=== PATIENT | female | born 1965 | race Caucasian/White ===

== ENCOUNTER → 2020-11-27 | Outpatient (CLI) | payer BC ==
--- NOTE | 2020-11-29 11:37 | MM ---
Reason for exam: screening (asymptomatic). Last mammogram was performed 10 years and 4 months ago. History: Patient is postmenopausal. Physical Findings: A clinical breast exam by your physician is recommended on an annual basis and results should be correlated with mammographic findings. MG Screening Mammo w CAD Bilateral CC and MLO view(s) were taken. No prior studies available for comparison. The breast tissue is heterogeneously dense. This may lower the sensitivity of mammography. Course dystrophic benign appearing calcifications lateral left CC view. Grouped calcifications posterior central 6 o'clock left breast. ASSESSMENT: Incomplete: need additional imaging evaluation, BI-RAD 0 RECOMMENDATION: Special view mammogram of the left breast. (magnification) If lesion persists on supplemental views, image directed ultrasound is recommended. [facility] will attempt to contact patient to return for supplemental views and ultrasound if indicated.
== END | disposition home or self-care (01) ==
LOC: RADMAMWWP 15:52
PROVIDERS: ATTEND Family Medicine
DX: Z12.31 Encounter for screening mammogram for malignant neoplasm of breast (principal); Z78.0 Asymptomatic menopausal state
CPT/HCPCS: 77067

== ENCOUNTER → 2020-12-05 | Outpatient (CLI) | payer BC ==
--- NOTE | 2020-12-09 09:33 | MM ---
Reason for exam: additional evaluation requested from abnormal screening. Last mammogram was performed less than 1 month ago. History: Patient is postmenopausal. Took hormonal contraceptives for 6 years beginning at age 17. Physical Findings: Nurse did not find any significant physical abnormalities on exam. MG Work Up Mamm w CAD LT CC with magnification, LM with magnification, and LM view(s) were taken of the left breast. Prior study comparison: November 27, 2020, bilateral MG screening mammo w CAD. August 12, 2010, bilateral digital screening mammogram. The breast tissue is heterogeneously dense. This may lower the sensitivity of mammography. Finding: There are round, regional calcifications in the 5 o'clock lower outer quadrant of the left breast. No tight groups. Short term follow up recommended. New finding since November 27, 2020 and August 12, 2010. These results were verbally communicated with the patient and result sheet given to the patient on 12/05/20. ASSESSMENT: Probably benign, BI-RAD 3 RECOMMENDATION: Follow-up diagnostic mammogram of the left breast in 6 months.
== END | disposition home or self-care (01) ==
LOC: RADMAMWWP 14:58
PROVIDERS: ATTEND Family Medicine
DX: R92.1 Mammographic calcification found on diagnostic imaging of breast (principal); Z78.0 Asymptomatic menopausal state
CPT/HCPCS: 77065

== ENCOUNTER → 2021-07-18 | Outpatient (CLI) | payer BC ==
--- NOTE | 2021-07-21 09:46 | MM ---
Reason for exam: follow-up at short interval from prior study. Last mammogram was performed 7 months ago. History: Patient is postmenopausal. Took hormonal contraceptives for 6 years beginning at age 17. Physical Findings: Nurse did not find any significant physical abnormalities on exam. MG Diagnostic Mammo LT w CAD CC, MLO, XCCL, and LM view(s) were taken of the left breast. Prior study comparison: December 05, 2020, left breast MG work up mamm w CAD LT. November 27, 2020, bilateral MG screening mammo w CAD. The breast tissue is heterogeneously dense. This may lower the sensitivity of mammography. There are benign appearing round dystrophic calcifications in the left breast. There is no discrete abnormality. These results were verbally communicated with the patient and result sheet given to the patient on 07/18/21. ASSESSMENT: Benign, BI-RAD 2 RECOMMENDATION: Return to routine screening mammogram schedule for both breasts. Back on schedule.
== END | disposition home or self-care (01) ==
LOC: RADMAMWWP 14:09
PROVIDERS: ATTEND Family Medicine
DX: R92.8 Other abnormal and inconclusive findings on diagnostic imaging of breast (principal)
CPT/HCPCS: 77065

== ENCOUNTER → 2021-12-18 | Outpatient (CLI) | payer BC ==
--- NOTE | 2021-12-19 12:28 | MM ---
Reason for exam: screening (asymptomatic). Last mammogram was performed 5 months ago. History: Patient is postmenopausal. Took hormonal contraceptives for 6 years beginning at age 17. Physical Findings: A clinical breast exam by your physician is recommended on an annual basis and results should be correlated with mammographic findings. MG Screening Mammo w CAD Bilateral CC and MLO view(s) were taken. Prior study comparison: July 18, 2021, left breast MG diagnostic mammo LT w CAD. December 05, 2020, left breast MG work up mamm w CAD LT. November 27, 2020, bilateral MG screening mammo w CAD. August 12, 2010, bilateral digital screening mammogram. There are scattered fibroglandular densities. Finding: There are new suspicious regional calcifications in the upper outer quadrant of the left breast, extends to nipple spanning 4.5cm, possible underlying mass. New finding since July 18, 2021. ASSESSMENT: Incomplete: need additional imaging evaluation, BI-RAD 0 RECOMMENDATION: Special view mammogram and ultrasound of the left breast. [facility] will attempt to contact patient to return for supplemental views and ultrasound.
== END | disposition home or self-care (01) ==
LOC: RADMAMWWP 16:37
PROVIDERS: ATTEND Family Medicine
DX: Z12.31 Encounter for screening mammogram for malignant neoplasm of breast (principal); Z78.0 Asymptomatic menopausal state
CPT/HCPCS: 77067

== ENCOUNTER → 2021-12-24 | Outpatient (CLI) | payer BC ==
--- NOTE | 2021-12-24 14:12 | MM ---
Reason for exam: additional evaluation requested from abnormal screening. Last mammogram was performed less than 1 month ago. History: Patient is postmenopausal. Took hormonal contraceptives for 6 years beginning at age 17. Physical Findings: A clinical breast exam by your physician is recommended on an annual basis and results should be correlated with mammographic findings. MG Work Up Mamm w CAD LT CC, MLO, and LM view(s) were taken of the left breast. Prior study comparison: December 18, 2021, bilateral MG screening mammo w CAD. July 18, 2021, left breast MG diagnostic mammo LT w CAD. The breast tissue is heterogeneously dense. This may lower the sensitivity of mammography. Finding: There are intermediate concern, suspicious pleomorphic, regional, grouped calcifications in the upper outer quadrant, anterior to middle position of the left breast. Focal asymmetry in the left upper outer quadrant. New finding since December 18, 2021 and July 18, 2021. Results were given to the patient verbally at the time of the exam. ASSESSMENT: Incomplete: need additional imaging evaluation, BI-RAD 0 RECOMMENDATION: Ultrasound of the left breast.
--- NOTE | 2021-12-24 14:15 | USB ---
Reason for exam: additional evaluation requested from abnormal screening. History: Patient is postmenopausal. Took hormonal contraceptives for 6 years beginning at age 17. Physical Findings: A clinical breast exam by your physician is recommended on an annual basis and results should be correlated with mammographic findings. US Breast Workup LT Left complete breast ultrasound includes all four quadrants, the retroareolar region and axilla. Finding demonstrates a 2.8 x 1.1 x 2.3cm irregular, lobular lesion at 1 o'clock, a 0.4 x 0.5 x 0.4cm irregular, lobular lesion at 2 o'clock and a 2.5 x 1.0 x 1.5cm irregular, lobular lesion at 4 o'clock. Left axillary lymph node suspicious, thickened cortex. Results were given to the patient verbally at the time of the exam. ASSESSMENT: Highly suggestive of malignancy, BI-RAD 5 RECOMMENDATION: Ultrasound core biopsy of the left breast. Called Dr. Leblanc's office with mammographic findings and has scheduled an appointment for the patient for 12/26/21 at 9:[address] Cordero. Biopsy scheduled for 12/30/21 at 12:30. PRELIMINARY REPORT CALLED AND FAXED TO DR. CORDERO ON 12/24/21.
== END | disposition home or self-care (01) ==
LOC: RADMAMWWP 10:14
PROVIDERS: ATTEND Family Medicine
DX: R92.1 Mammographic calcification found on diagnostic imaging of breast (principal); N64.89 Other specified disorders of breast; Z78.0 Asymptomatic menopausal state
CPT/HCPCS: 77065

== ENCOUNTER → 2021-12-25 | Outpatient (CLI) | payer BC ==
[2021-12-25 09:55] VITALS: PULSE 90; RESP 13; TEMP 97.9
--- NOTE | 2021-12-25 10:54 | P.GSHP ---
History of Present Illness H&P Date: 12/25/21 Chief Complaint: Abnormal left breast mammogram Lenora is a 56-year-old white female seen in consultation for Dr. Nova regarding an abnormal left breast mammogram. She underwent a bilateral mammogram on [id number]. An area 4.5 cm microcalcifications of concern were seen in the left breast. She then underwent a diagnostic left breast mammogram which again showed a focal asymmetry in the left breast as well as an ultrasound of the left breast which revealed a 2.8 x 2.3 cm irregular lobulated lesion at 1:00, 0.4 x 0.5 cm irregular lesion at 2:00, and a 2.5 x 1.5 cm irregular lesion at 4:00. Left axillary lymph node also appeared to have a thickened cortex. Th e patient has noted an area of nodularity in the left breast approximately 3 months ago, the area behind the nipple does seem to have changed to the patient. She has some mild intermittent shooting pain. She has not had any recent trauma or infection of the breast. She has not had any surgery of the breast. She has had some weight loss over the past several years and has changed the type of brought she wears and the underwire on the broad does seem to be the irritated and area where the nodularity is present. The patients last mammogram was 1 year ago done here November 2020, than a follow up in June 2021 and told all OK, and now patient felt something and had repeat recent mammograms. Caffiene: 2 cups 32 oz coffee daily nicotine: in 20's not since than chocolate: occasional hormones: post menopausal since age of 42; did not use any BCP: 2 years in 20's Family history: Negative Hormonal history: Menarche: 11 breast fed: yes, age at first : 28 menopause: 42 hormones: none Surgical History: 2 C-sections Medical History: none Social History: Nicotine: Negative Alcohol: Negative Drugs: - Constitutional Constitutional: Denies chills, Denies fever - EENT Eyes: denies blurred vision, denies pain Ears: deny: decreased hearing, tinnitus Ears, nose, mouth and throat: Denies headache, Denies sore throat - Breasts Breasts: bilateral: as per HPI - Cardiovascular Cardiovascular: Denies chest pain, Denies shortness of breath - Respiratory Respiratory: Denies cough, Denies 7 - Gastrointestinal Gastrointestinal: Denies abdominal pain, Denies diarrhea, Denies nausea, Denies vomiting - Genitourinary (Female) Genitourinary: Denies dysuria, Denies hematuria - Menstruation Menstruation: Reports postmenopausal - Musculoskeletal Musculoskeletal: Denies myalgias - Integumentary Integumentary: Denies pruritus, Denies rash - Neurological Neurological: Denies numbness, Denies weakness - Psychiatric Psychiatric: Denies anxiety, Denies depression - Endocrine Endocrine: Denies fatigue, Denies weight change - Hematologic/Lymphatic Comment: none - Allergic/Immunologic Allergic/Immunologic: Reports seasonal allergies Past Medical History Past Medical History: No Reported History History of Any Multi-Drug Resistant Organisms: None Reported Past Surgical History: Section Additional Past Surgical History / Comment(s): section x 2 Past Anesthesia/Blood Transfusion Reactions: No Reported Reaction Past Psychological History: No Psychological Hx Reported Smoking Status: Never smoker Past Alcohol Use History: None Reported Past Drug Use History: None Reported Medications and Allergies Home Medications Medication Instructions Recorded Confirmed Type No Known Home Medications 12/25/21 12/25/21 History Allergies Allergy/AdvReac Type Severity Reaction Status Date / Time Iodinated Contrast Media AdvReac Unknown Verified 12/25/21 09:49 Childhood Surgical - Exam Vital Signs Temp Pulse Resp Pulse Ox 97.9 F 90 13 98 12/25/21 09:50 12/25/21 09:50 12/25/21 09:50 12/25/21 09:50 BMI: 18.6 - General well developed, well nourished, no distress - Eyes normal ocular movement - ENT no congestion - Neck trachea midline - Respiratory normal respiratory effort, clear to auscultation - Cardiovascular Rhythm: regular Heart Sounds: normal: S1, S2 - Abdomen Abdomen: soft, non tender, no guarding, no rigid, no rebound - Integumentary normal turgor - Neurologic no disoriented, no combative - Musculoskeletal normal gait - Psychiatric oriented to time, oriented to person, oriented to place, speech is normal, memory intact Breast Exam: BRA: 32A Inspection: Bilateral grade 2 ptosis Palpation: Right breast: Multiple positional exam fibrocystic changes no dominant masses or nodules of concern Right axilla: No adenopathy of concern Left breast: Some deviation of the nipple toward some skin changes laterally, fullness in the upper outer quadrant approximately 4 cm in size extending down towards the 3 to 4 o'clock position of the left breast Left axilla: Approximately 1.5 cm lymph node palpable Results Mammogram and ultrasound results reviewed Assessment and Plan Assessment: Impression: Abnormal left breast mammogram and ultrasound Palpable mass left breast Plan: Left breast core biopsy Left axillary node biopsy folllow up after biopsy CC: Dr. Nova
== END ==
LOC: WWCWWP 09:36
PROVIDERS: ATTEND Surgery
DX: R92.8 Other abnormal and inconclusive findings on diagnostic imaging of breast (principal); N63.20 Unspecified lump in the left breast, unspecified quadrant; Z91.041 Radiographic dye allergy status

== ENCOUNTER → 2021-12-30 | Day surgery (SDC) | payer BC ==
--- NOTE | 2021-12-30 21:41 | USB ---
EXAMINATION TYPE: US biopsy breast VAD LT, US biopsy breast add'l VAD LT, US biopsy breast add'l VAD LT, US biopsy breast add'l VAD LT, MG postbiopsy diagnostic mammo LT wo CAD DATE OF EXAM: 12/30/2021 CLINICAL HISTORY: 56-year-old female R92.8 abnormal mammogram. TECHNIQUE: Ultrasound guided core biopsy of the left breast, 4 sites. COMPARISON: 12/24/2021, 12/18/2021, 11/27/2020, 07/18/2021 FINDINGS: The procedure of ultrasound guided core biopsy was explained to the patient. Benefits, alt ernatives, and risks were discussed. An informed consent was then obtained. The patient was placed in supine positioning for imaging and for the procedure. The overlying skin w as prepped and draped in usual sterile fashion. Lidocaine was used as anesthetic into the skin at ea ch of the 4 sites with a total of 3 mL utilized. Subsequently, at each site international logistics manager, lidocaine with ep inephrine was injected into the subcutaneous tissues and around each target lesion with a total 20 mL utilized. 1. 4:00 large mass with calcifications: Under ultrasound guidance, a 13-gauge vacuum-assisted mammoto me biopsy gun device was used to obtain 3 core samples. Following this, a wing clip was left in lesi on. Not seen on postbiopsy mammogram, likely too far posterior to be included in the [id number]. 2. 2:00 small 5 mm mass: Under ultrasound guidance, a 13-gauge vacuum-assisted mammotome biopsy gun d evice was used to obtain 5 core samples. Following this, a spiral hydro-Cirilo was left in lesion. Th is is seen on postbiopsy mammogram. 3. 1:00 large mass: Under ultrasound guidance, a 13-gauge vacuum-assisted mammotome biopsy gun device was used to obtain 5 core samples. Following this, a wing clip was left in lesion. This is seen on postbiopsy mammogram. 4. Most inferior enlarged axillary node: Additional similar enlarged axillary nodes are present more superiorly. Under ultrasound guidance, a 13-gauge vacuum-assisted mammotome biopsy gun device was use d to obtain 4 core samples. Following this, a Downey cirilo clip was left in lesion. This is outside t he field of view on the postbiopsy mammogram atelectasis. The patient tolerated the procedure well without any immediate complication. The patient was kept in the radiology department for short stay after the procedure and then discharged home in stable condi tion. Note that the 4:00 wing clip at the site of large mass and axillary Hydromark clip appear to be outsi de the field of view and are not seen on the postbiopsy mammogram. Only the wing clip at the large 1:00 mass and Hydromark clip at the small 2:00 mass are visualized. IMPRESSION: Successful, uncomplicated four site ultrasound guided core biopsy of multicentric BI-RADS [address] disease including an axillary lymph node. Full pathology results to follow. Note that the 4:00 wing clip at the site of large mass and axillary Hydromark clip appear to be outsi de the field of view and are not seen on the postbiopsy mammogram. Only the wing clip at the large 1:00 mass and Hydromark clip at the small 2:00 mass are visualized.
== END ==
LOC: RADUSWWP 12:16
PROVIDERS: ATTEND Surgery
DX: C50.511 Malignant neoplasm of lower-outer quadrant of right female breast (principal); C50.412 Malignant neoplasm of upper-outer quadrant of left female breast; R92.8 Other abnormal and inconclusive findings on diagnostic imaging of breast
CPT/HCPCS: 77065; 19083; 19084; A4648; 88305; 88341; 88342

== ENCOUNTER → 2022-01-07 | Outpatient (CLI) | payer BC ==
--- NOTE | 2022-01-07 13:21 | CT ---
EXAMINATION TYPE: CT abdomen pelvis wo con DATE OF EXAM: 01/07/2022 HISTORY: RIGHT UPPER QUADRANT PAIN CT DLP: 429 mGycm. Automated Exposure Control for Dose Reduction was Utilized. TECHNIQUE: CT scan of the abdomen and pelvis is performed without oral or IV contrast. COMPARISON: NONE FINDINGS: Within the limitations of a non-contrast study, the following observations are made. LUNG BASES: No significant abnormality is appreciated. LIVER/GB: Hepatomegaly with innumerable heterogeneous hypodense masses. Finding is consistent with di ffuse metastatic disease. Gallbladder has some surrounding fluid and fat stranding axial image 41 and coronal image 17. No biliary dilatation. PANCREAS: No significant abnormality is seen. SPLEEN: No significant abnormality is seen. ADRENALS: No significant abnormality is seen. KIDNEYS: No renal calculi seen bilaterally. There is 3.7 cm simple appearing thin-walled cyst in the right kidney midpole level coronal image 48. Some central and a core prominence upper pole right kidn ey could reflect dilated calyx versus simple central cysts. Latter favored. Bladder shows mild/modera te concentric wall thickening. BOWEL: Suboptimal evaluation as patient has little intra-abdominal fat and lack of enteric contrast. No suspicious small or large bowel dilatation. GENITAL ORGANS: Normal size uterus with moderate amount of fluid in the pelvic cul-de-sac having slig htly higher density than simple fluid. Hounsfield units average near 12. Hemorrhagic ascites needs to be considered. LYMPH NODES: Suboptimal evaluation due to lack of contrast and little intra-abdominal fat. Prominent border line enlarged 1.6 x 1.0 cm right groin lymph node coronal image 17. OSSEOUS STRUCTURES: No significant abnormality is seen. OTHER: No significant additional abnormality is seen. IMPRESSION: 1. Hepatomegaly with innumerable hypodense masses consistent with metastatic disease in patient with newly diagnosed multicentric left breast neoplasm and known left axillary adenopathy involvement. Ill -defined fluid and fat stranding surrounding the gallbladder could be product of metastatic infiltrat ed liver. Acute cholecystitis cannot be excluded in the appropriate clinical setting. Consider HIDA s can to further evaluate. 2. [id number] concentric wall thickening in the urinary bladder, correlate to exclude acute cys titis. 3. Small to moderate amount of nonsimple suspected hemorrhagic ascites in the pelvis is noted.
== END | disposition home or self-care (01) ==
LOC: RADCTMAIN 12:33
PROVIDERS: ATTEND Family Medicine
DX: C50.912 Malignant neoplasm of unspecified site of left female breast (principal); C77.3 Secondary and unspecified malignant neoplasm of axilla and upper limb lymph nodes; N32.89 Other specified disorders of bladder; R16.0 Hepatomegaly, not elsewhere classified
CPT/HCPCS: 74176

== ENCOUNTER → 2022-01-30 | Outpatient (CLI) | payer BC ==
--- NOTE | 2022-01-31 02:13 | MR ---
EXAMINATION TYPE: MR brain wo/w con DATE OF EXAM: 01/30/2022 COMPARISON: None HISTORY: Current Breast and Liver CA CONTRAST: Standard multiplanar, multisequence MRI departmental protocol images were obtained without contrast a nd with 5ml mL intravenous Gadavist gadolinium contrast. Ventricles have normal size. There is no mass effect or midline shift. No sign of intracranial hemorr charisse. Diffusion images show no sign of an acute infarct. The paige-white matter structures have fairly normal signal pattern. No evidence of cerebral edema. There is normal enhancement of the venous sinuses. There is no pathologic enhancement. No evidence of a posterior fossa mass. Brainstem appears normal. Cerebellum appears normal. Corpus callosum appears normal. Sella turcica is normal. No evidence of orbital mass. IMPRESSION: Normal MRI scan of the brain. No evidence of metastatic disease.
== END | disposition home or self-care (01) ==
LOC: RADMRIMAIN 17:31
PROVIDERS: ATTEND Internal Medicine Hematology & Oncology
DX: C50.919 Malignant neoplasm of unspecified site of unspecified female breast (principal); C22.9 Malignant neoplasm of liver, not specified as primary or secondary
CPT/HCPCS: 70553; A9585

== ENCOUNTER → 2022-02-02 | Day surgery (SDC) | payer BC ==
[~2022-02-02] MED LIST: ALPRAZolam 0.5 MG TAB PO PRN; HYDROmorphone 0.5 MG/0.5 ML SYRINGE IVP PRN
[2022-02-02 09:32] LABS: Mean Platelet Volume 7.1; Platelet Count 346 k/uL (150-450)
[2022-02-02 09:37] LABS: INR 1.1 (<1.2); Prothrombin Time 11.5 sec (9.0-12.0)
[2022-02-02 09:49] VITALS: TEMP 98
[2022-02-02 11:38] VITALS: RESP 16
[2022-02-02 11:40] VITALS: BP 88/55; PULSE 78
--- NOTE | 2022-02-02 11:53 | US ---
EXAMINATION TYPE: US biopsy liver DATE OF EXAM: 02/02/2022 HISTORY: Liver mass, abnormal PET/CT, history of breast carcinoma. FINDINGS: Maximal barrier technique was utilized. Hand hygiene achieved with soap and water and alco hol-based hand rub. The skin overlying a suitable path to the patient's mass in anterior aspect left lobe of liver was localized with ultrasound and the overlying skin prepped and draped. Ultrasound wa s utilized with sterile technique. Lidocaine was used for local anesthesia. A skin laureen was made wi th a scalpel. An 18-gauge needle was advanced under direct ultrasound guidance and core specimen obt ained of the mass. Specimen submitted in formalin to Pathology. Following the procedure, hemostasis achieved and the patient is discharged in stable condition without complication. IMPRESSION:STATUS POST ULTRASOUND GUIDED CORE BIOPSY OF left lobe liver MASS, PATHOLOGY IS PENDING. THIS PROCEDURE IS PERFORMED BY THE UNDERSIGNED.
== END ==
LOC: RADPROMAIN 08:47
PROVIDERS: ATTEND Internal Medicine Hematology & Oncology
DX: K74.00 Hepatic fibrosis, unspecified (principal); Z85.3 Personal history of malignant neoplasm of breast; C50.919 Malignant neoplasm of unspecified site of unspecified female breast
CPT/HCPCS: 47000 ×2; 85049; 85610; 88342; 88307; 88341; 96374; 36415; 76942; J1170

== ENCOUNTER → 2022-02-20 | Outpatient (CLI) | payer BC ==
[2022-02-20 14:46] VITALS: BP 118/68; PULSE 106; RESP 18; TEMP 98.4
--- NOTE | 2022-02-20 15:20 | P.PN ---
Subjective Progress Note Date: 02/20/22 Principal diagnosis: stage 4 breast cancer Stage IV left breast cancer Lenora is a 56-year-old white female seen in consultation for Dr. Nova regarding an abnormal left breast mammogram. She underwent a bilateral mammogram on [id number]. An area 4.5 cm microcalcifications of concern were seen in the left breast. She then underwent a diagnostic left breast mammogram which again showed a focal asymmetry in the left breast as well as an ultrasound of the left breast which revealed a 2.8 x 2.3 cm irregular lobulated lesion at 1:00, 0.4 x 0.5 cm irregular lesion at 2:00, and a 2.5 x 1.5 cm irregular lesion at 4:00. Left axillary lymph node also appeared to have a thickened cortex. The patient has noted an area of nodularity in the left breast approximately 3 months ago, the area behind the nipple does seem to have changed to the patient. She has some mild intermittent shooting pain. She has not had any recent trauma or infection of the breast. She has not had any surgery of the breast. She has had some weight loss over the past several years and has changed the type of brought she wears and the underwire on the broad does seem to be the irritated and area where the nodularity is present. The patients last mammogram was 1 year ago done here November 2020, than a follow up in June 2021 and told all OK, and now patient felt something and had repeat recent mammograms. Patient [place] [id number]. Pathology at the 4:00 site 2:00 site 1:00 site and axillary tail revealed invasive poorly differentiated ductal carcinoma grade 3. This was ER negative. Positive HER-2 positive. She underwent a [place] [address] which revealed innumerable heterogeneous hypodense masses in the liver. This was felt to be consistent with metastatic disease. The patient states she tolerated the biopsy without difficulty Note from Dr. Su 01-12-22 reviewed; recommended to take taxotere, herceptin and perjeta This was started January 27, for a total of six treatments she has received 2 already. Patient states that her liver has decreased in size. She feels well. She is not having any adverse effects on the medication. Caffiene: 2 cups 32 oz coffee daily nicotine: in 20's not since than chocolate: occasional hormones: post menopausal since age of 42; did not use any BCP: 2 years in 20's Family history: Negative Hormonal history: Menarche: 11 breast fed: yes, age at first : 28 menopause: 42 hormones: none Surgical History: 2 C-sections Medical History: none Social History: Nicotine: Negative Alcohol: Negative Drugs: - Constitutional Constitutional: Denies chills, Denies fever - EENT Eyes: denies blurred vision, denies pain Ears: deny: decreased hearing, tinnitus Ears, nose, mouth and throat: Denies headache, Denies sore throat - Breasts Breasts: bilateral: as per HPI - Cardiovascular Cardiovascular: Denies chest pain, Denies shortness of breath - Respiratory Respiratory: Denies cough - Gastrointestinal Gastrointestinal: Denies abdominal pain, Denies diarrhea, Denies nausea, Denies vomiting - Genitourinary (Female) Genitourinary: Denies dysuria, Denies hematuria - Menstruation Menstruation: Reports postmenopausal - Musculoskeletal Musculoskeletal: Denies myalgias - Integumentary Integumentary: Denies pruritus, Denies rash - Neurological Neurological: Denies numbness, Denies weakness - Psychiatric Psychiatric: Denies anxiety, Denies depression - Endocrine Endocrine: Denies fatigue, Denies weight change - Hematologic/Lymphatic Comment: none - Allergic/Immunologic Allergic/Immunologic: Reports seasonal allergies Objective - Vital Signs Vital signs: Vital Signs Temp 98.4 F 02/20/22 14:44 Pulse 106 H 02/20/22 14:44 Resp 18 02/20/22 14:44 BP 118/68 02/20/22 14:44 Pulse Ox 95 02/20/22 14:44 FiO2 Intake & Output 02/19/22 02/20/22 02/20/22 18:59 06:59 18:59 Weight 47.627 kg - Exam BMI: 18.6 - Constitutional General appearance: Present: cooperative - EENT Eyes: Present: EOMI ENT: Present: hearing grossly normal - Neck Neck: Present: normal ROM - Respiratory Respiratory: bilateral: CTA - Cardiovascular Heart sounds: normal: S1, S2 - Gastrointestinal General gastrointestinal: Present: soft - Integumentary Integumentary: Present: normal turgor - Musculoskeletal Musculoskeletal: Present: gait normal - Psychiatric Psychiatric: Present: A&O x's 3, appropriate affect, intact judgment & insight - Additional findings Additional findings: Breast examination: Bra: 32A Inspection: Bilateral grade 1/2 ptosis Palpation: Right breast: Multi-positional exam no dominant masses or nodules of concern Right axilla: No adenopathy of concern Left breast: Mass in the upper outer quadrant has decreased markedly in size Left axilla: No adenopathy of concern Assessment and Plan Assessment: Impression: stage 4 left breast cancer Plan: 2 is responding well to her chemotherapy, at this time we'll continue present therapy Follow-up here in April Follow-up sooner any questions or concerns CC: DR. Nova
== END ==
LOC: WWCWWP 14:35
PROVIDERS: ATTEND Surgery
DX: C50.912 Malignant neoplasm of unspecified site of left female breast (principal); Z91.041 Radiographic dye allergy status

== ENCOUNTER → 2022-04-24 | Outpatient (CLI) | payer BC ==
[2022-04-24 17:22] LABS: African American GFR (CKD) >90 (>60 ml/min/1.73 sqM); Blood Urea Nitrogen 17 mg/dL (7-17); Non-African American GFR(CKD) >90 (>60 ml/min/1.73 sqM)
--- NOTE | 2022-04-25 09:32 | CT ---
EXAMINATION TYPE: CT ChestAbdPelvis w con CT DLP: 427.7 mGycm, Automated exposure control for dose reduction was used. DATE OF EXAM: 04/24/2022 5:42 PM COMPARISON: PET/CT 01/09/2022, CT abdomen pelvis 01/07/2022. CLINICAL INDICATION:Female, 56 years old with history of C50.412 Breast cancer; PHH, Breast cancer Technique: Multiple axial images of the chest, abdomen, and pelvis were obtained following the intrav enous administration of 70 mL Isovue-300. Oral contrast administered. Two-dimensional coronal and sag ittal reconstructions were obtained. Findings: CHEST: LUNGS/ PLEURA: Biapical pleural-parenchymal scarring. No pleural effusion, pneumothorax, or focal con solidation. No suspicious pulmonary nodules or masses. AIRWAY: Patent and unremarkable.. HEART: Size within normal limits. No pericardial effusion. MEDIASTINUM: No hilar adenopathy. Decrease in size of hyperdense 0.6 cm lesion in the anterior superi or mediastinum adjacent to the aortic arch (series 3, image 15). No new adenopathy. VASCULATURE: No aortic aneurysm. Right chest wall Mediport catheter terminates in the superior cavoa trial junction. MUSCULOSKELETAL: No acute osseous abnormalities. No aggressive osseous lesion. SOFT TISSUES/LYMPH NODES: No axillary adenopathy. Surgical clip in the left breast. There is redemons trated left breast mass and additional satellite lesions have decreased in size without distinct iden tifiable nodularity. LOWER NECK: Previously demonstrated right supraclavicular lymph node posterior to the right thyroid l obe is not well appreciated today examination. ABDOMEN: Limited evaluation due to paucity of intra-abdominal fat. ABDOMEN LIVER: Multiple hypodense bilobar hepatic lesions are demonstrated. These have all. 2. Decrease in size in prior examination with largest in the left hepatic lobe measuring up to 1.6 cm (series 3, image 59) and largest in the right hepatic lobe measuring up to 1.4 cm (series 3, image 6 2). Difficult to assess 1 to 1 comparison due to prior imaging having lack of IV contrast. GALLBLADDER AND BILE DUCTS: Contracted gallbladder. No biliary ductal dilatation. PANCREAS: Unremarkable. SPLEEN: Unremarkable. ADRENAL GLANDS: Unremarkable. KIDNEYS AND URETERS: No evidence of hydronephrosis or renal calculus. Stable right renal cysts with l argest measuring up to 3.7 cm. Kidneys enhance symmetrically. PELVIS BLADDER: Under distended, limiting evaluation. REPRODUCTIVE: Unremarkable. ABDOMEN & PELVIS STOMACH AND BOWEL: Stomach and duodenum are unremarkable. No focal wall thickening or surrounding inf lammatory changes. Moderate colonic stool burden. Enteric contrast reaches the ascending colon. No ev idence of bowel obstruction. PERITONEUM: No evidence of pneumoperitoneum or free fluid. VASCULATURE: No evidence of aortic aneurysm. MUSCULOSKELETAL: No acute osseous abnormalities. No aggressive osseous lesion. LYMPH NODES: No pathologically enlarged lymphadenopathy. Prominent right groin lymph node measuring u p to 1.1 cm stable. SOFT TISSUE/ABDOMINAL WALL: Unremarkable IMPRESSION: Positive response to therapy with decrease in size of left breast eccentric neoplastic disease with n o distinct nodularity remaining. Decreased size of left anterior mediastinal hyperdense lesion. And s ignificant decrease in size of multiple hepatic metastasis.
== END | disposition home or self-care (01) ==
LOC: RADPROMAIN 16:27
PROVIDERS: ATTEND Internal Medicine Hematology & Oncology
DX: C78.7 Secondary malignant neoplasm of liver and intrahepatic bile duct (principal); C50.412 Malignant neoplasm of upper-outer quadrant of left female breast
CPT/HCPCS: 82565; 84520; 71260; 74177; 36415; Q9967

== ENCOUNTER → 2022-07-24 | Outpatient (CLI) | payer BC ==
[2022-07-24 12:36] LABS: African American GFR (CKD) >90 (>60 ml/min/1.73 sqM); Blood Urea Nitrogen 14 mg/dL (7-17); Non-African American GFR(CKD) >90 (>60 ml/min/1.73 sqM)
--- NOTE | 2022-07-24 14:53 | CT ---
EXAMINATION TYPE: CT ChestAbdPelvis w con DATE OF EXAM: 07/24/2022 COMPARISON: 04/24/2022 HISTORY: BREAST CA CT DLP: 960 mGycm Automated exposure control for dose reduction was used. CONTRAST: CT scan of the chest, abdomen and pelvis is performed with Oral Contrast and with IV Contrast, patien t injected with 70 mL of Isovue 300. FINDINGS: CT chest: The lungs are clear consolidative, interstitial or masslike density. There are no suspicious lung nod ules. There is no pleural effusion, pleural thickening or pneumothorax. The great vessels the chest are normal and there is no mediastinal, hilar or axillary adenopathy. No focal lytic or blastic osseous abnormalities are seen within the thorax. CT abdomen and pelvis: Multiple small scattered hypodensities within the liver are unchanged in size and number. There is no focal mass or organomegaly involving the pancreas, spleen or adrenal glands. Kidneys excrete contrast promptly and symmetrically is no solid renal mass or hydronephrosis. There m ultiple stable right renal cysts. There is no retroperitoneal adenopathy or hemorrhage in the caliber of the abdominal aorta is normal. The bowel loops are normal in caliber is no obstruction or dilatation. No inflammatory changes are id entified in the bowel wall or mesentery. There is no free intraperitoneal air or fluid. There is no pelvic mass free fluid, abscess or adenopathy. No focal lytic or blastic osseous abnormalities are seen within the abdomen or pelvis IMPRESSION: 1. No evidence of metastatic disease in the chest. No acute cardiopulmonary disease. 2. Hypodensities within the liver presumably consistent with liver metastasis unchanged compared to p revious. 3. No new abnormalities within the abdomen or pelvis.
== END | disposition home or self-care (01) ==
LOC: RADPROMAIN 10:49
PROVIDERS: ATTEND Internal Medicine Hematology & Oncology
DX: C50.412 Malignant neoplasm of upper-outer quadrant of left female breast (principal); K76.89 Other specified diseases of liver
CPT/HCPCS: 82565; 84520; 71260; 74177; 36415; J1642; Q9967

== ENCOUNTER → 2022-07-24 | Outpatient (CLI) | payer BC ==
--- NOTE | 2022-07-24 16:30 | P.PN ---
Subjective Progress Note Date: 07/24/22 Stage IV left breast cancer Lenora is a 56-year-old white female seen in consultation for Dr. Nova regard ing an abnormal left breast mammogram. She underwent a bilateral mammogram on . An area 4.5 cm microcalcifications of concern were seen in the left breast. She then underwent a diagnostic left breast mammogram which again showed a focal asymmetry in the left breast as well as an ultrasound of the left breast which revealed a 2.8 x 2.3 cm irregular lobulated lesion at 1:00, 0.4 x 0.5 cm irregular lesion at 2:00, and a 2.5 x 1.5 cm irregular lesion at 4:00. Left axillary lymph node also appeared to have a thickened cortex. The patient has noted an area of nodularity in the left breast approximately 3 months ago, the area behind the nipple does seem to have changed to the patient. She has some mild intermittent shooting pain. She has not had any recent trauma or infection of the breast. She has not had any surgery of the breast. She has had some weight loss over the past several years and has changed the type of brought she wears and the underwire on the broad does seem to be the irritated and area where the nodularity is present. The patients last mammogram was 1 year ago done here November 2020, than a follow up in June 2021 and told all OK, and now patient felt something and had repeat recent mammograms. Patient underwent a left breast ultrasound core biopsy on . Pathology at the 4:00 site 2:00 site 1:00 site and axillary tail revealed invasive poorly differentiated ductal carcinoma grade 3. This was ER negative. Positive HER-2 positive. She underwent a computed tomography scan of the abdomen and pelvis on which revealed innumerable heterogeneous hypodense masses in the liver. This was felt to be consistent with metastatic disease. The patient states she tolerated the biopsy without difficulty Note from Dr. Su 01-12-22 reviewed; recommended to take taxotere, herceptin and perjeta This was started January 27, for a total of six treatments she has received 2 already. Patient states that her liver has decreased in size. She feels well. She is not having any adverse effects on the medication. 07-24-22 This was an appointment to discuss what her treatment has been. No examination was done. Note from Dr. Su reviewed from 06-25-22. The patient comleted 6 cycle of Taxotere +HP; she has also had two cycles of maintenance HP The patient was to have CT chest abdomen and pelvis with follow up in one month these were performed this afternoon. She will continue on therapy Herceptin and Perjetta through December. I have spent time answering her questions and will see her again in 2 months.
[2022-07-24 16:32] VITALS: BP 148/79; PULSE 99; RESP 17; TEMP 97.8
== END ==
LOC: WWCWWP 15:36
PROVIDERS: ATTEND Surgery
DX: Z53.9 Procedure and treatment not carried out, unspecified reason (principal)

== ENCOUNTER → 2023-01-08 | Outpatient (CLI) | payer OTHER ==
--- NOTE | 2023-01-08 12:16 | PE ---
EXAMINATION TYPE: PET CT fusion skull to thigh DATE OF EXAM: 01/08/2023 COMPARISON: Most recent CT October 13, 2022 and older studies HISTORY: Left-sided breast cancer including left axillary involvement, poorly differentiated ductal c arcinoma grade 3 diagnosed December 2021. Patient completed chemotherapy in April 2022 and is currentl y undergoing immunotherapy with last treatment December 29, 2022 TECHNIQUE: Following the intravenous administration of 11.9 mCi of F-18 FDG, whole body images are p erformed from the skull base to the midthigh. Images are reviewed on the computer in the coronal, ax ial, and sagittal planes. Reconstructed rotating images are created on independent workstation and r eviewed on the computer. A localization and attenuation correction CT is performed in conjunction w ith the PET scan. Blood glucose level equals 95 SCAN: Subsequent Scan FINDINGS: SKULL BASE AND NECK: No new or residual areas of abnormal hypermetabolic uptake. CHEST, MEDIASTINUM, AND HILAR REGION: Surgical clips in the left breast are redemonstrated. No new or residual areas of abnormal hypermetabolic uptake in the left breast on current study. No abnormal hy permetabolic uptake in the left axilla. No new areas of abnormal hypermetabolic uptake in the thorax. ABDOMEN AND PELVIS: Interval resolution of hepatomegaly. No abnormal hypermetabolic masses in the li vandana on current study. Normal excretion is redemonstrated. Patient has little intra-abdominal fat. No new areas of definitive abnormal hypermetabolic uptake. OSSEOUS STRUCTURES: No new areas of abnormal hypermetabolic uptake. OTHER CT: There is new right internal jugular Mediport catheter terminating in SVC. Poorly distended bladder with mild to moderate concentric wall thickening is redemonstrated. Prominent ametabolic righ t groin lymph node measuring 14 x 11 mm axial images 217 is again seen and stable. IMPRESSION: Complete positive treatment response as detailed above.
== END | disposition home or self-care (01) ==
LOC: RADPETMAIN 10:09
PROVIDERS: ATTEND Internal Medicine Hematology & Oncology
DX: C50.412 Malignant neoplasm of upper-outer quadrant of left female breast (principal)
CPT/HCPCS: 78815; A9552

== ENCOUNTER → 2023-01-29 | Outpatient (CLI) | payer OTHER ==
[2023-01-29 16:09] VITALS: BP 148/82; PULSE 78; RESP 17; TEMP 97.8
--- NOTE | 2023-01-29 16:44 | P.PN ---
Subjective Progress Note Date: 01/29/23 Principal diagnosis: stage IV left breast invasive ductal cancer Lenora is a 57 female who was diagnosed with metastatic left breast invasive ductal carcinoma in December 2021. At that time a CAT scan showed hepatomegaly with innumerable heterogeneous hypodense masses highly suggestive of metastatic involvement. The patient subsequently underwent Taxotere plus HPV starting on 6721 and is completed this on . The patient was then placed on maintenance HPV and has had 11 cycles of the same. A follow-up PET scan on show complete response and resolution of the hepatomegaly. No new or residual areas of abnormal hypermetabolic uptake were noted in the left breast. None were noted in the left axilla. The patient was seen at [facility] on 6822 and they concurred with continuing the present treatment without surgical intervention. Family history: Nephew: Melanoma stage 3 unresectable Hormonal history: Menarche 11 breast fed: Yes, age of first post 28 Menopause: 42 Surgical history: 2 C-sections Medical history: Negative Social history: Nicotine: Negative Alcohol: Negative Drugs: Negative Objective - Vital Signs Vital signs: Vital Signs Temp 97.8 F 01/29/23 16:07 Pulse 78 01/29/23 16:07 Resp 17 01/29/23 16:07 BP 148/82 01/29/23 16:07 Pulse Ox 99 01/29/23 16:07 FiO2 Intake & Output 01/28/23 01/29/23 01/29/23 18:59 06:59 18:59 Weight 49.895 kg - Constitutional General appearance: Present: cooperative - EENT Eyes: Present: EOMI ENT: Present: hearing grossly normal - Neck Neck: Present: normal ROM - Respiratory Respiratory: bilateral: CTA - Cardiovascular Heart sounds: normal: S1, S2 - Gastrointestinal General gastrointestinal: Present: soft - Integumentary Integumentary: Present: normal turgor - Musculoskeletal Musculoskeletal: Present: gait normal - Psychiatric Psychiatric: Present: A&O x's 3, appropriate affect, intact judgment & insight - Additional findings Additional findings: Breast examination: Inspection: Bilateral grade 1 ptosis Right breast: Multi-positional exam no dominant masses or nodules of concern Right axilla: No adenopathy of concern Left breast: Multiple positional exam approximately 2 cm area of fullness at the nipple areolar complex with dense breast tissue not a specific mass Left axilla: No adenopathy of concern Assessment and Plan Assessment: Impression: Stage IV metastatic left breast invasive ductal carcinoma with complete response to neoadjuvant therapy on recent PET CT Patient recently seen and evaluated at [facility] Plan: Consider hormone therapy as she is weakly estrogen and progesterone positive Continue immunotherapy Patient has asked about a mammogram and we would suggest that this would be okay to perform in follow-up after the mammogram CC: Dr. Leblanc
== END ==
LOC: WWCWWP 15:38
PROVIDERS: ATTEND Surgery
DX: R92.8 Other abnormal and inconclusive findings on diagnostic imaging of breast (principal); D05.12 Intraductal carcinoma in situ of left breast; Z91.041 Radiographic dye allergy status; Z88.8 Allergy status to other drugs, medicaments and biological substances

== ENCOUNTER → 2023-04-05 | Day surgery (SDC) | payer OTHER ==
[2023-04-05 10:14] VITALS: RESP 16; TEMP 98.1
[2023-04-05 12:14] VITALS: BP 153/83; PULSE 62
--- NOTE | 2023-04-14 09:58 | MM ---
Prior Study Comparison: 12/24/2021 Left Diagnostic Mammogram, [facility]. 12/30/2021 Left MG diagnostic mammo LT wo CAD., [facility]. 03/12/2023 Bilateral MG 3D diag mammo w/cad YAKELIN, [facility]. Pathology Description: Approach: CC FA Needle Type: Eviva Cores: 9 Skin Nicks: 1 Gauge: 9 Pathology Description: Approach: Medial to Lateral Needle Type: Eviva Cores: 4 Skin Nicks: 1 Gauge: 9 The procedure of stereotactic guided core biopsy was explained to the patient. Benefits, alternatives, and risks were discussed. An informed consent was then obtained. The lesion within the left breast more medial was targeted. The shortness pathway for biopsy was chosen. The Shortness pathway was left lateral approach. A vacuum assisted biopsy gun was used to obtain multiple core samples. Top hat clip placed. The lesion more laterally in the left breast was targeted. The shortness pathway for biopsy was chosen. Shortness pathway was superior approach. A vacuum assisted biopsy gun was used to obtain multiple core samples. Dumb stevens clip placed. The patient tolerated the procedure well without any immediate complication. The patient was kept in the radiology department for short stay after the procedure and then discharged home in stable condition. Targeted calcifications are identified in specimen mammogram. Post biopsy mammogram shows the clip to appear in satisfactory position relative to the targeted area of concern on the preprocedure images. Impression: SUCCESSFUL, UNCOMPLICATED STEREOTACTIC GUIDED CORE BIOPSY OF AREA OF CONCERN IN THE left BREAST. Pathology Results: Result: Malignant, Ductal carcinoma in situ, comedo type. A. LEFT BREAST, SITE A, STEREOTACTIC NEEDLE CORE BIOPSY: Microinvasive carcinoma arising in high grade DCIS with comedo necrosis and calcifications. See Surgical Pathology Cancer Case Summary and Comment. B. LEFT BREAST, SITE B, STEREOTACTIC NEEDLE CORE BIOPSY: High grade ductal carcinoma in situ (DCIS) with comedo necrosis and calcifications. See Surgical Pathology Cancer Case Summary and Comment. Overall Assessment: Malignant Management: Surgical Consultation of the left breast. Electronically signed and approved by: Felix Baldwin DO
== END ==
LOC: RADMAMWWP 09:56
PROVIDERS: ATTEND Surgery
DX: D05.12 Intraductal carcinoma in situ of left breast (principal)
CPT/HCPCS: 88305; 88342; 88341; 19081; 19082; A4648; J2001

== ENCOUNTER → 2023-06-10 | Outpatient (CLI) | payer OTHER ==
--- NOTE | 2023-06-10 14:56 | P.PN ---
Progress Note - Text Progress Note Date: 06/10/23 Lenora is a 57-year-old white female status post left breast mastectomy and sentinel node biopsy on [id number]. The mastectomy specimen revealed multifocal invasive poorly differentiated ductal carcinoma and high-grade DCIS. Invasive tumor focally involved the inferior superficial and deep margins. Margins were negative for DCIS. Lymph node negative for metastatic disease. Examination: Lungs: Clear Heart: Regular rate and rhythm Incision: Clean and dry GRICELDA minimal Plan: DC GRICELDA drain I discussed with the patient and her that the invasive tumor focally involving inferior superficial and deep margins. They understand this and at this time there is nothing further for me to surgically removed. We will continue treatment as per Dr. Smith. We could consider radiation therapy and they contacted Dr. Su regarding this. Appointment radiation oncology CC: Dr. Leblanc
== END ==
LOC: WWCWWP 14:19
PROVIDERS: ATTEND Surgery
DX: C50.412 Malignant neoplasm of upper-outer quadrant of left female breast (principal); Z90.12 Acquired absence of left breast and nipple; Z91.018 Allergy to other foods; Z91.041 Radiographic dye allergy status; Z88.8 Allergy status to other drugs, medicaments and biological substances

== ENCOUNTER → 2023-08-02 | Outpatient (CLI) | payer OTHER ==
--- NOTE | 2023-08-03 09:24 | CT ---
EXAMINATION TYPE: CT ChestAbdPelvis w con CT DLP: 418.90 mGycm, Automated exposure control for dose reduction was used. DATE OF EXAM: 08/02/2023 4:32 PM COMPARISON: Pet/CT 01/08/2023. CLINICAL INDICATION:Female, 58 years old with history of C50.412, Z01.818, obs for mets hx of left br east ca Technique: CT ChestAbdPelvis w con Multiple axial images were obtained. Two-dimensional coronal and s agittal reconstructions were obtained. Contrast used:100 mL of Isovue 300 with IV Contrast, Oral contrast used: with Oral Contrast Findings: CHEST: LUNGS/ PLEURA: No evidence for focal consolidation, pneumothorax or pleural effusion. Mild centrilobu lar and paraseptal emphysema changes. No new or enlarging pulmonary nodules identified. AIRWAY: Patent and unremarkable. HEART: Size within normal limits. MEDIASTINUM: No gross evidence of adenopathy. VASCULATURE: No aortic aneurysm. MUSCULOSKELETAL: No acute osseous abnormalities. SOFT TISSUES/LYMPH NODES: Bilateral breasts are surgically absent. Right chest wall [id number] is present. Fused port tip terminates in the superior vena cava. LOWER NECK: No significant findings. ABDOMEN: ABDOMEN LIVER: Unremarkable GALLBLADDER AND BILE DUCTS: Unremarkable. PANCREAS: Unremarkable. SPLEEN: Unremarkable. ADRENAL GLANDS: Unremarkable. KIDNEYS AND URETERS: No evidence of hydronephrosis or renal calculus. The ureters are unremarkable. R ight renal cyst. PELVIS BLADDER: Unremarkable REPRODUCTIVE: Unremarkable. ABDOMEN & PELVIS STOMACH AND BOWEL: No evidence of bowel obstruction. PERITONEUM: No evidence of pneumoperitoneum or free fluid. VASCULATURE: No evidence of aortic aneurysm. MUSCULOSKELETAL: No acute osseous abnormalities LYMPH NODES: No gross evidence for lymphadenopathy. SOFT TISSUE/ABDOMINAL WALL: Right inguinal lymph node measuring 10 mm in short axis is not significan tly changed from prior. IMPRESSION: No evidence for lymphadenopathy or suspicious finding to suggest recurrence.
== END | disposition home or self-care (01) ==
LOC: RADCTMAIN 14:35
PROVIDERS: ATTEND Internal Medicine Hematology & Oncology
DX: Z03.89 Encounter for observation for other suspected diseases and conditions ruled out (principal); C50.412 Malignant neoplasm of upper-outer quadrant of left female breast; Z17.1 Estrogen receptor negative status [ER-]
CPT/HCPCS: 71260; 74177; Q9967

== ENCOUNTER → 2023-10-08 | Outpatient (CLI) | payer OTHER ==
--- NOTE | 2023-10-08 15:55 | P.PN ---
Subjective Progress Note Date: 10/08/23 Subjective Progress Note Date: 10-08-23 Principal diagnosis: stage IV left breast invasive ductal cancer Lenora is a 58 year old female who was diagnosed with metastatic left breast invasive ductal carcinoma in December 2021. At that time a CAT scan showed hepatomegaly with innumerable heterogeneous hypodense masses highly suggestive of metastatic involvement. The patient subsequently underwent Taxotere plus HPV starting on 6721 and is completed this on . The patient was then placed on maintenance HPV and has had 11 cycles of the same. A follow-up PET scan on show complete response and resolution of the hepatomegaly. No new or residual areas of abnormal hypermetabolic uptake were noted in the left breast. None were noted in the left axilla. The patient was seen at [facility] on 6822 and they concurred with continuing the present treatment without surgical intervention. At the present time the patient is receiving Herceptin and perjetta every [address] [place] [address] underwent a bilateral mammogram. Based on this she was recommended to undergo a left breast biopsy. She underwent a left breast stereotactic core biopsy [place] 2 [place] [address]. 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 The second site was consistent with high-grade DCIS. The lesions are ER/CT negative and HER-2 positive. The left breast is distended and larger than the right breast causing some anxiety for the patient. She is concerned that without intervention this could cause difficulty with local disease. Her preference is for a left mastectomy. The case is discussed with Dr. Su, he understands the patients concerns and although would recommend against surgery to increase survival, agrees with mastectomy if patient desires this. Radha patient had a left mastectomy on 06-01-23. Her mastectomy showed multifocal invasive poorly differentiated ductal carcinoma and high grade DCIS, margins were (+). Ther was nothing more surgically to offer. note 09-23-23 Dr. Su reviewed, continue maintenance Herceptin adn Perjetta, labs and CT prior to next visit with Dr. Su Feeling well at this time. She is not complaining of any new lumps masses or nodules in the right breast or on the left chest wall. Family history: Nephew: Melanoma stage 3 unresectable Hormonal history: Menarche 11 breast fed: Yes, age of first post 28 Menopause: 42 Surgical history: 2 C-sections Medical history: Negative Social history: Nicotine: Negative Alcohol: Negative Drugs: Negative Objective - Vital Signs Vital signs: Intake & Output 10/07/23 10/08/23 10/08/23 18:59 06:59 18:59 Weight 47.174 kg - Constitutional General appearance: Present: cooperative - EENT Eyes: Present: EOMI ENT: Present: hearing grossly normal - Neck Neck: Present: normal ROM - Respiratory Respiratory: bilateral: CTA - Cardiovascular Heart sounds: normal: S1, S2 - Gastrointestinal General gastrointestinal: Present: soft - Integumentary Integumentary: Present: normal turgor - Musculoskeletal Musculoskeletal: Present: gait normal - Psychiatric Psychiatric: Present: A&O x's 3, appropriate affect, intact judgment & insight - Additional findings Additional findings: Breast examination: BRA: 34A Inspection: status post left mastectomy Palpation: Right breast: Multiple positional exam no dominant masses or nodules of concern Right axilla: No adenopathy of concern Left breast: incisions clean and dry Left axilla: No adenopathy of concern Assessment and Plan Assessment: Impression: Known stage IV left breast cancer with complete response to any metastatic disease left mastectomy no evidence of recurrence Patient doing well at this time Plan: CT scan and blood work as per Dr. Su Follow-up here in 6 months Patient will be due for a right breast mammogram February 2024 Cc: Dr. Su, Dr. Nova
[2023-10-08 16:07] VITALS: BP 133/84; PULSE 86; RESP 15; TEMP 98.3
== END ==
LOC: WWCWWP 15:26
PROVIDERS: ATTEND Surgery
DX: C79.81 Secondary malignant neoplasm of breast (principal); C80.1 Malignant (primary) neoplasm, unspecified; F41.9 Anxiety disorder, unspecified; Z17.1 Estrogen receptor negative status [ER-]; Z91.018 Allergy to other foods; Z91.041 Radiographic dye allergy status; Z88.8 Allergy status to other drugs, medicaments and biological substances

== ENCOUNTER → 2023-11-01 | Outpatient (CLI) | payer OTHER ==
[2023-11-01 15:56] LABS: African American GFR (CKD) >90 (>60 ml/min/1.73 sqM); Blood Urea Nitrogen 21 mg/dL (7-17); Non-African American GFR(CKD) 78 (>60 ml/min/1.73 sqM)
--- NOTE | 2023-11-01 21:20 | CT ---
EXAMINATION TYPE: CT ChestAbdPelvis w con CT DLP: 418.2 mGycm, Automated exposure control for dose reduction was used. DATE OF EXAM: 11/01/2023 4:47 PM COMPARISON: 08/02/2023 pet/CT 01/09/2022, and 01/08/2023 CLINICAL INDICATION:Female, 58 years old with history of C50.412 BREAST CANCER; [facility], Stage 4 metastat ic Breast Cancer- liver mets Technique: CT ChestAbdPelvis w con; Multiple axial images were obtained. Two-dimensional coronal and sagittal reconstructions were obtained. Contrast used:100 cc mL of Isovue 300 with IV Contrast, Oral contrast used: with Oral Contrast Findings: CHEST: LUNGS/ PLEURA: No evidence for focal consolidation, pneumothorax or pleural effusion. Mild centrilobu lar and paraseptal emphysema changes. No new or enlarging pulmonary nodules identified. Unchanged pro minence of the posterior aspect of the sternomanubrial junction posteriorly in the lungs appreciated on sagittal and axial imaging series 4 image 26 and series 9 image 52. AIRWAY: Patent and unremarkable. HEART: Size within normal limits. MEDIASTINUM: No gross evidence of adenopathy. VASCULATURE: No aortic aneurysm. Right chest wall Ngttbo-h-Ggil tip terminating in the superior vena cava. MUSCULOSKELETAL: No acute osseous abnormalities. SOFT TISSUES/LYMPH NODES: Bilateral breasts are surgically absent. LOWER NECK: No significant findings. ABDOMEN: ABDOMEN LIVER: No liver lesions are identified. GALLBLADDER AND BILE DUCTS: Unremarkable. PANCREAS: Unremarkable. SPLEEN: Unremarkable. ADRENAL GLANDS: Unremarkable. KIDNEYS AND URETERS: No evidence of hydronephrosis or renal calculus. The ureters are unremarkable. R ight renal cyst. PELVIS BLADDER: Unremarkable REPRODUCTIVE: Unremarkable. ABDOMEN & PELVIS STOMACH AND BOWEL: No evidence of bowel obstruction. Large amount of ingested food is seen throughout the gastric intestinal tract. PERITONEUM: No evidence of pneumoperitoneum or free fluid. VASCULATURE: No evidence of aortic aneurysm. MUSCULOSKELETAL: No acute osseous abnormalities LYMPH NODES: No gross evidence for lymphadenopathy. SOFT TISSUE/ABDOMINAL WALL: Right inguinal lymph node measuring 10 mm in short axis is not significan tly changed from prior. IMPRESSION: No evidence for lymphadenopathy or suspicious finding to suggest recurrence.
== END | disposition home or self-care (01) ==
LOC: RADCTMAIN 15:12
PROVIDERS: ATTEND Internal Medicine Hematology & Oncology
DX: C78.7 Secondary malignant neoplasm of liver and intrahepatic bile duct (principal); C50.412 Malignant neoplasm of upper-outer quadrant of left female breast; Z17.1 Estrogen receptor negative status [ER-]
CPT/HCPCS: 82565; 84520; 71260; 74177; 36415; Q9967

== ENCOUNTER → 2024-03-13 | Outpatient (CLI) | payer OTHER ==
--- NOTE | 2024-03-13 11:17 | MM ---
Reason for Exam: Hx of breast cancer, mastectomy. Last screening mammogram was performed 12 month(s) ago. Patient History: Menarche at age 12. First Full-Term at age 28. Late child-bearing (after 28). Postmenopausal. Patient has history of breast feeding. Breast cancer, left, age 56. Breast cancer, left, age 56. Breast cancer, left, age 56. Breast cancer, left, age 56. Breast cancer, left, age 57. Previous chemotherapy at age 56. Hormonal Contraceptives for 6 years from age 17 until age 23. 05/2023, Mastectomy on the Left side. 04/05/2023, MG stereo VAD BX addl LT on the Left side. 04/05/2023, Malignant MG stereo VAD BX LT on the left side. 12/30/2021, Malignant US biopsy breast VAD LT on the left side. 12/30/2021, Malignant US biopsy breast add'l VAD LT on the left side. 12/30/2021, Malignant US biopsy breast add'l VAD LT on the left side. 12/30/2021, Malignant US biopsy breast add'l VAD LT on the left side. Prior Study Comparison: 12/24/2021 Left Diagnostic Mammogram, [facility]. 12/30/2021 Left MG diagnostic mammo LT wo CAD., [facility]. 03/12/2023 Bilateral MG 3D diag mammo w/cad [facility], [facility]. Tissue Density: Right: The breasts are heterogeneously dense, which may obscure small masses. Findings: Analyzed By CAD. No mass or distortion right breast. No suspicious calcifications. Overall Assessment: Negative, BI-RAD 1 Management: Diagnostic Mammogram of the right breast in 1 year. . Results were given to the patient verbally at the time of exam. Patient should continue monthly self-breast exams. A clinical breast exam by your physician is recommended on an annual basis. This exam should not preclude additional follow-up of suspicious palpable abnormalities. Note on Mary scores and lifetime risk: 1. A Mary score greater than 3% is considered moderate risk. If this is the case, consider specialist referral to assess eligibility for a risk reducing agent. 2. If overall lifetime risk for the development of breast cancer is 20% or higher, the patient may qualify for future screening with alternating mammogram and breast MRI. Electronically signed and approved by: Jorge Dow M.D. Radiologis
== END | disposition home or self-care (01) ==
LOC: RADMAMWWP 10:47
PROVIDERS: ATTEND Surgery
DX: R92.331 Mammographic heterogeneous density, right breast (principal); Z85.3 Personal history of malignant neoplasm of breast; Z78.0 Asymptomatic menopausal state
CPT/HCPCS: 77061; 77065

== ENCOUNTER → 2024-03-17 | Outpatient (CLI) | payer OTHER ==
[2024-03-17 14:43] VITALS: BP 130/83; PULSE 72; RESP 16; TEMP 99.1
--- NOTE | 2024-03-17 15:19 | P.PN ---
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 At that time a CAT scan showed hepatomegaly with innumerable heterogeneous hypodense masses highly suggestive of metastatic involvement. The patient subsequently underwent Taxotere plus HPV starting on 6721 and is completed this on . The patient was then placed on maintenance HPV and has had 11 cycles of the same. A follow-up PET scan on show complete response and resolution of the hepatomegaly. No new or residual areas of abnormal hypermetabolic uptake were noted in the left breast. None were noted in the left axilla. The patient was seen at [facility] on 6822 and they concurred with continuing the present treatment without surgical intervention. At the present time the patient is receiving Herceptin and perjetta every 3 weeks. The patient on underwent a bilateral mammogram. Based on this she was recommended to undergo a left breast biopsy. She underwent a left breast stereotactic core biopsy of 2 sites on . 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 The second site was consistent with high-grade DCIS. The lesions are ER/PA negative and HER-2 positive. The left breast is distended and larger than the right breast causing some anxiety for the patient. She is concerned that without intervention this could cause difficulty with local disease. Her preference is for a left mastectomy. The case is discussed with Dr. Su, he understands the patients concerns and although would recommend against surgery to increase survival, agrees with mastectomy if patient desires this. 03-17-24 Related to the left chest wall and no complaints of any new lumps masses or nodules of concern in the right breast or under either arm left breast mastectomy on 06-01-23 margins (+) note medical oncology 11-04-23 reviewed: continue on herceptin and pergeta ( every wednesday) tolerating this without difficulty CT chest/abdomen/pelvis (-) about 4 months ago, due in April right breast mammogram 03-13-24 BIRAD 1; personally interpreted She does bring up the question of left breast reconstruction Family history: Nephew: Melanoma stage 3 unresectable Hormonal history: Menarche 11 breast fed: Yes, age of first post 28 Menopause: 42 Surgical history: 2 C-sections left mastectomy Medical history: Negative Social history: Nicotine: Negative Alcohol: Negative Drugs: Negative Objective - Vital Signs Vital signs: Vital Signs Temp 99.1 F 03/17/24 14:40 Pulse 72 03/17/24 14:40 Resp 16 03/17/24 14:40 BP 130/83 03/17/24 14:40 Pulse Ox 100 03/17/24 14:40 FiO2 Intake & Output 03/16/24 03/17/24 03/17/24 18:59 06:59 18:59 Weight 47.627 kg - Constitutional General appearance: Present: cooperative - EENT Eyes: Present: EOMI ENT: Present: hearing grossly normal - Neck Neck: Present: normal ROM - Respiratory Respiratory: bilateral: CTA - Cardiovascular Heart sounds: normal: S1, S2 - Integumentary Integumentary: Present: normal turgor - Musculoskeletal Musculoskeletal: Present: gait normal - Psychiatric Psychiatric: Present: A&O x's 3, appropriate affect, intact judgment & insight - Additional findings Additional findings: Breast examination: BRA: 34A Inspection: left mastectomy Palpation: Right breast: Multi positional exam no dominant masses or nodules of concern Right axilla: No adenopathy of concern Left breast: Multi-positional exam no recurrence on chest wall Left axilla: No adenopathy of concern Assessment and Plan Assessment: Impression: Known stage IV left breast cancer with complete response to any metastatic disease left mastectomy 06-01-23 presently on herceptin and perjetta Plan: continue treatment as per medical oncology The patient will talk to Dr. Delacruz regarding possible reconstruction and may have an appointment with plastic surgery Follow-up here in 6 months CC: Dr. Su, Dr. Nova
== END ==
LOC: WWCWWP 14:14
PROVIDERS: ATTEND Surgery
DX: C50.912 Malignant neoplasm of unspecified site of left female breast (principal); R16.0 Hepatomegaly, not elsewhere classified; F41.9 Anxiety disorder, unspecified; Z90.12 Acquired absence of left breast and nipple; Z17.1 Estrogen receptor negative status [ER-]; Z91.018 Allergy to other foods; Z91.041 Radiographic dye allergy status; Z88.8 Allergy status to other drugs, medicaments and biological substances

== ENCOUNTER → 2024-05-04 | Outpatient (CLI) | payer OTHER ==
[2024-05-04 11:27] LABS: African American GFR (CKD) >90 (>60 ml/min/1.73 sqM); Blood Urea Nitrogen 13 mg/dL (7-17); Non-African American GFR(CKD) >90 (>60 ml/min/1.73 sqM)
--- NOTE | 2024-05-04 12:50 | CT ---
EXAMINATION TYPE: CT ChestAbdPelvis w con DATE OF EXAM: 05/04/2024 COMPARISON: 11/01/2023 HISTORY: Hx breast ca CT DLP: 814 mGycm Automated exposure control for dose reduction was used. CONTRAST: CT scan of the chest, abdomen and pelvis is performed with Oral Contrast and with IV Contrast, patien t injected with 100 mL of Isovue 300. FINDINGS: CT chest: There are mild stable chronic interstitial changes in lung apices. There is no suspicious lung mass o r nodule.. There is no abnormal airspace/consolidative density. There is no pleural effusion, pleural thickening or pneumothorax. The great vessels and chest are normal there is no mediastinal, hilar or axillary adenopathy. No focal osseous lesions are seen. There are bilateral breast implants. CT abdomen and pelvis: Gallbladder is normal without distention, pericholecystic fluid, wall thickening or gallstone. There is no biliary ductal dilatation. There is no focal mass or organomegaly involving the liver, pancreas, spleen or adrenal glands.. There is no solid renal mass or hydronephrosis. There is no retroperitoneal adenopathy or hemorrhage in the caliber of the abdominal aorta is normal. The bowel loops are normal in caliber and there is no dilatation or obstruction. No inflammatory galicia ges identified in the bowel wall and mesentery. There is no free intracranial air or fluid. There is no pelvic mass or adenopathy. There is no free fluid within the pelvis. No focal osseous lesions are seen. Soft tissue the abdomen and pelvis are normal. IMPRESSION: No evidence of recurrent or metastatic disease.
== END | disposition home or self-care (01) ==
LOC: RADCTMAIN 10:33
PROVIDERS: ATTEND Internal Medicine Hematology & Oncology
DX: C50.412 Malignant neoplasm of upper-outer quadrant of left female breast (principal); Z17.1 Estrogen receptor negative status [ER-]
CPT/HCPCS: 82565; 84520; 71260; 74177; 36415; Q9967

== ENCOUNTER → 2024-10-26 | Outpatient (CLI) | payer OTHER ==
[2024-10-26 14:50] LABS: African American GFR (CKD) >90 (>60 ml/min/1.73 sqM); Blood Urea Nitrogen 19 mg/dL (7-17); Non-African American GFR(CKD) >90 (>60 ml/min/1.73 sqM)
--- NOTE | 2024-10-27 10:55 | CT ---
EXAMINATION TYPE: CT ChestAbdPelvis w con DATE OF EXAM: 10/26/2024 COMPARISON: Prior study May 04, 2024 and older studies CLINICAL INDICATION: Female, 59 years old with history of C50.412 BR CANCER, Hx breast ca observe for mets, originally diagnosed in 2021. TECHNIQUE: CT scan of the thorax, abdomen and pelvis is performed with oral and with IV Contrast, patient inject ed with 100 mL of Isovue 300. CT DLP: 760 mGycm. Automated Exposure Control for Dose Reduction was Utilized. FINDINGS: LUNGS: Mild to moderate biapical pleural/parenchymal scarring is redemonstrated. No significant new p ulmonary nodules or masses. No focal consolidation. No pleural effusion. HEART: Size within normal limits. No significant coronary artery calcifications. MEDIASTINUM: There are no greater than 1 cm hilar or mediastinal lymph nodes. No pericardial effusi on is seen. OTHER: Bilateral breasts are surgically absent. Right-sided Mediport catheter redemonstrated. LIVER/GB: No significant abnormality is appreciated. PANCREAS: No significant abnormality is seen. SPLEEN: No significant abnormality is seen. ADRENALS: No significant abnormality is seen. KIDNEYS: Mild to moderate concentric wall thickening in the bladder, nonspecific finding. A few simpl e appearing thin-walled cysts in the right kidney are redemonstrated. BOWEL: Oral contrast has not reached the right colon. Patient also has little internal fat making roby luation suboptimal. No abnormal small or large bowel dilatation. GENITAL ORGANS: No gross abnormality seen. LYMPH NODES: No greater than 1cm abdominal or pelvic lymph nodes are appreciated. OSSEOUS STRUCTURES: No significant abnormality is seen. OTHER: No significant additional abnormality is seen. IMPRESSION: No suspicious new mass or adenopathy to suggest active neoplastic recurrence. No signifi cant change from most recent prior CT. [facility], , 10/27/2024 10:53 AM
== END | disposition home or self-care (01) ==
LOC: RADCTMAIN 14:06
PROVIDERS: ATTEND Internal Medicine Hematology & Oncology
DX: C50.412 Malignant neoplasm of upper-outer quadrant of left female breast (principal); Z17.1 Estrogen receptor negative status [ER-]
CPT/HCPCS: 82565; 84520; 71260; 74177; 36415; Q9967